=== PATIENT | male | born 1980 | race Caucasian/White ===

== ENCOUNTER 2019-01-02 20:30 | Outpatient (CLI) | payer MEDICARE | END 2019-01-02 20:31 | disposition home or self-care (01) | LOC: SLEEPLAB 20:30 | PROVIDERS: ATTEND Family Medicine | DX: G47.33 Obstructive sleep apnea (adult) (pediatric) (principal); R53.83 Other fatigue; Q90.9 Down syndrome, unspecified | CPT/HCPCS: 95810 ==